=== PATIENT | male | born 1930 | race Hispanic/Latino ===

== ENCOUNTER 2017-05-18 18:44 | Emergency (ER) | payer MEDICARE ==
[~2017-05-18 18:44] MED LIST: ALLO100T PO; FINA5TAB41 PO; LEVO100T12 PO; LOSA50TA37 PO; METO-408 PO; TAMS0.4C32 PO; VIT1CAPS43 PO; VITA150T PO
[2017-05-18 19:44] LABS: APPEARANCE,URINE Clear (CLEAR); BILIRUBIN,URINE Negative (NEGATIVE); COLOR,URINE Yellow (YELLOW); GLUCOSE, URINE (UA) Negative (NEGATIVE); KETONES,URINE Negative (NEGATIVE); LEUKOCYTE ESTERASE ,URINE Negative (NEGATIVE); NITRATE,URINE Negative (NEGATIVE); OCCULT BLOOD,URINE Trace (NEGATIVE); PH,URINE 5.5 (5.0-8.0); PROTEIN,URINE Negative (NEGATIVE)
[2017-05-18 19:53] LABS: BACTERIA,URINE Rare /HPF (None Seen); SQUAMOUS EPITHELIAL CELL,UR None Seen /LPF (0-2); WBC,URINE 0-1 /HPF (0-1)
[2017-05-18] MEDS ORDERED: CLONIDINE HCL 0.1 MG TABLET ONE (20:55)
== END 2017-05-18 21:37 | disposition home or self-care (01) ==
LOC: EDH 18:44
DX: I10 Essential (primary) hypertension (principal); E07.9 Disorder of thyroid, unspecified; Z98.890 Other specified postprocedural states; Z87.891 Personal history of nicotine dependence
CPT/HCPCS: 81001; 93005

== ENCOUNTER → 2018-07-12 | Outpatient (CLI) | payer MEDICARE ==
[~2018-07-12] MED LIST changes: -LOSA50TA37 PO; +LOSA50TA64 PO
--- NOTE | 2018-07-12 12:52 | NUR ---
MBSS COMPLETED. -S/S OF ASPIRATION. RECOMMEND MECHANICAL SOFT/GROUND, THIN LIQUIDS; PILLS CRUSHED WITH APPLESAUCE. PATIENT INFORMATION: Pt IS AN 88 YEAR OLD MALE REFERRED FOR AN MBSS SECONDARY TO CHOCKING EPISODES DURING P.O. PT WAS ACCOMPANIED BY TO MBSS. THEY STATE Pt HAS HAD DIFFICULTY WITH MEATS AND EVEN CHOCKING EPISODES WITH A GRAPE. PT COOPERATIVE DURING THE EVALUATION. PT CURRENTLY REFERRED WITH DIAGNOSIS OF DYSPHAGIA AND GERD. Pt HAS A PAST MEDICAL HISTORY SIGNIFICANT FOR HYPERTENSION, HYPOTHYROIDISM, BENIGN PROSTATIC HYPERTROPHY, APPENDECTOMY, ALZHEIMER'S DEMENTIA. 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 NO ASPIRATION OR PENETRATION PRESENT DURING THE MBSS. A-P VIEW: TOTAL BOLUS TRANSIT TIME OF MORE THAN 20 SECONDS WITH MODERATE (MORE THAN 50%) OF BOLUS RESIDUE IN UPPER 1/3 OF ESOPHAGUS WITH ABNORMAL ESOPHAGEAL MOTILITY NOTED. RECOMMENDATIONS: 1. MECHANICAL SOFT/GROUND, THIN LIQUIDS; PILLS CRUSHED WITH APPLESAUCE. 2. COMPENSATORY STRATEGIES: *SEATED AT 90 *REMAIN UPRIGHT 30 MINUTES AFTER THE MEAL *SLOW RATE *ALTERNATE BITES AND SIPS 3. GI CONSULT G-CODES SWALLOWING: [id number] Addendum: 07/12/18 at 1312 by JASON SINGH Amended: Links added.
== END | disposition home or self-care (01) ==
LOC: RAH 10:04
PROVIDERS: ATTEND Family Medicine
DX: K21.9 Gastro-esophageal reflux disease without esophagitis (principal)
CPT/HCPCS: 74230; 92611

== ENCOUNTER → 2019-01-11 | Outpatient (CLI) | payer MEDICARE | END | disposition home or self-care (01) | LOC: RAH 16:23 | PROVIDERS: ATTEND Family Medicine | DX: M51.36 Other intervertebral disc degeneration, lumbar region (principal) | CPT/HCPCS: 72100 ==